=== PATIENT | male | born 1975 | race Caucasian/White ===

== ENCOUNTER 2016-12-22 12:20 | Emergency (ER) | payer BC ==
[2016-12-22 12:30] VITALS: RESP 18; TEMP 97.3
--- NOTE | 2016-12-22 12:42 | EDPHY ---
H & P Time Seen by Provider: 12/22/16 12:32 HPI/ROS: CHIEF COMPLAINT: Left ankle injury HISTORY OF PRESENT ILLNESS: 40-year-old male presents to the emergency department with injury to his left ankle. [place] and he is not exactly sure how he injured his left ankle but he does not remember putting his foot down. He thinks that it might have gotten crushed when he fell. He complains of isolated pain to the left ankle. Just happened prior to arrival. He did not hit his head or lose consciousness. Denies neck or back pain. Denies chest pain or difficulty breathing. Denies abdominal pain. He feels slightly nauseous but he feels that that is likely from the pain he is having of left ankle. He did try to bear weight a however unable to. REVIEW OF SYSTEMS: Constitutional: No fever, no chills. Eyes: No double or blurry vision. ENT: No sore throat. Respiratory: No cough, no shortness of breath. Cardiac: No chest pain. Gastrointestinal: No abdominal pain, vomiting or diarrhea. Genitourinary: No dysuria. Musculoskeletal: No neck or back pain. Skin: No rashes. Neurological: No headache. Past Medical/Surgical History: Appendectomy Social History: and lives in [place] Smoking Status: Never smoked Physical Exam: General Appearance: Alert, no distress. Eyes: Pupils equal and round. Extraocular motions are all intact. ENT: Mouth: Mucous membranes moist. Respiratory: No wheezing, rhonchi, or rales, lungs are clear to auscultation. Cardiovascular: Regular rate and rhythm. Gastrointestinal: Abdomen is soft and nontender, no masses, no rebound or guarding, bowel sounds normal. Neurological: Alert and oriented x 3, cranial nerves II through XII grossly intact Skin: Warm and dry, no rashes. Musculoskeletal: Nontender to palpate along the cervical, thoracic or lumbar spine. Neck is supple. Extremities: Swelling noted to the left ankle. Tender to palpate along the distal fibula. Mildly tender to the medial aspect of the left ankle. Limited dorsi and plantar flexion secondary to pain and swelling. No abrasions. Normal sensation to light touch with normal 2 point discrimination. Strong dorsalis pedis and posterior tibial pulse felt on the left foot and ankle. Psychiatric: Patient is oriented X 3, there is no agitation. Constitutional: Initial Vital Signs Temperature (C) 36.3 C 12/22/16 12:27 Heart Rate 59 L 12/22/16 12:27 Respiratory Rate 18 12/22/16 12:27 Blood Pressure 135/93 H 12/22/16 12:27 O2 Sat (%) 98 12/22/16 12:27 O2 Delivery Mode Room Air Allergies/Adverse Reactions: No Known Allergies Allergy (Unverified 12/22/16 12:27) Home Medications: Medication Instructions Recorded oxyCODONE/APAP 5/325 [Percocet 1 - 2 tab PO Q4-6PRN PRN #15 tab 12/22/16 5/325] Medical Decision Making - Diagnostics Imaging Results: Imaging Impressions Ankle X-Ray 12/22/16 12:37 Impression: Spiral distal fibular and posterior malleolar fractures. Imaging: I viewed and interpreted images myself Procedures: The patient was placed in Stubbs boot and given crutches. This was examined post application in good placement with normal LEASE OUT MAN. ED Course/Re-evaluation: The patient was given strict instructions to ice and elevate his leg as much as possible to help reduce swelling. He was encouraged to use anti-inflammatory such as ibuprofen. He was also given a prescription for Percocet per his request. He will follow up with orthopedic surgeon on Sunday. He understands that he should not bear any weight on this left ankle. Differential Diagnosis: Including but not limited to fracture, dislocation, contusion, sprain - Data Points Medications Given: Discontinued Medications Ibuprofen (Motrin) 600 mg PO EDNOW ONE Stop: 12/22/16 13:20 Last Admin: 12/22/16 13:22 Dose: 600 mg Departure - Departure Disposition: Home, Routine, Self-Care Clinical Impression: Closed left ankle fracture Qualifiers: Encounter type: initial encounter Qualified Code(s): S82.892A - Other fracture of left lower leg, initial encounter for closed fracture Condition: Good Instructions: Ankle Fracture (ED) Additional Instructions: Stubbs boot. Nonweightbearing, use crutches. Ibuprofen 600mg every 8 hours for pain as directed. Percocet for severe pain as directed. Referrals: Jose Tavares MD [Medical Doctor] - 2-3 days without fail Prescriptions: oxyCODONE/APAP 5/325 [Percocet 5/325] 1 - 2 tab PO Q4-6PRN PRN #15 tab PRN Reason: For Moderate To Severe Pain
[2016-12-22] MEDS ORDERED: IBUPROFEN 600 MG TAB PO ONE (13:19)
[2016-12-22 13:42] VITALS: BP 134/79; PULSE 57; O2SAT 97
== END 2016-12-22 13:42 | disposition home or self-care (01) ==
DX: S82.832A Other fracture of upper and lower end of left fibula, initial encounter for closed fracture (principal); V18.2XXA Unspecified pedal cyclist injured in noncollision transport accident in nontraffic accident, initial encounter; Y92.89 Other specified places as the place of occurrence of the external cause
CPT/HCPCS: L4386

== ENCOUNTER → 2017-12-25 | Outpatient (CLI) | payer BC | LOC: FIMAGING 11:53 | PROVIDERS: ATTEND Family Medicine | DX: R05 Cough (principal) ==